=== PATIENT | female | born 1950 | race Caucasian/White ===

== ENCOUNTER 2020-10-10 21:50 | Emergency (ER) | payer MEDICARE, OTHER ==
[~2020-10-10] VITALS: Ht 162.6 cm; Wt 90.1 kg
[2020-10-10] MEDS ORDERED: IV NORMAL SALINE 1,000ML 1,000 ML IV ONE (22:45)
[2020-10-10] MEDS ORDERED: dilTIAZem 25 MG/5 ML VIAL IVP ONE ×2 (22:45→22:56)
[2020-10-10 22:57] LABS: BASO # 0.1 x10^3/uL (0.0-0.2); BASO % 1 % (0-3); EOS # 0.5 x10^3/uL (0.0-0.7); EOS % 4 % (0-3); HEMATOCRIT 44.6 % (36.0-47.0); HEMOGLOBIN 15.1 g/dL (12.0-15.5); LYMPH % 34 % (24-48); MEAN CORPUSCULAR HEMOGLOBIN 31 pg (25-35); MEAN CORPUSCULAR HGB CONC 34 g/dL (31-37); MEAN CORPUSCULAR VOLUME 90 fL (79-100); MONO # 0.9 x10^3/uL (0.0-1.1); MONO % 8 % (0-9); NEUT # 6.3 x10^3uL (1.8-7.7); NEUT % 54 % (31-73); PLATELET COUNT 260 x10^3/uL (140-400); RED BLOOD COUNT 4.94 x10^6/uL (3.50-5.40); RED CELL DISTRIBUTION WIDTH 13.7 % (11.5-14.5); WHITE BLOOD COUNT 11.8 x10^3/uL (4.0-11.0)
[2020-10-10 23:01] LABS: CALCIUM 8.9 mg/dL (8.5-10.1); CREATININE 0.9 mg/dL (0.6-1.0); GFR 61.7; POTASSIUM 3.9 mmol/L (3.5-5.1)
[2020-10-10 23:07] LABS: ALBUMIN 3.8 g/dL (3.4-5.0); ALBUMIN/GLOBULIN RATIO 1.2 (1.0-1.7); TOTAL BILIRUBIN 0.3 mg/dL (0.2-1.0)
[2020-10-10] MEDS ORDERED: DILT180C2 PO (23:30)
--- NOTE | 2020-10-10 23:32 | PHYS DOC ---
Past History Past Medical History: High Cholesterol, Other Additional Past Medical Histor: ILD Past Surgical History: Hysterectomy, Tubal ligation Alcohol Use: Occasionally Adult General Chief Complaint Chief Complaint: RAPID HEART RATE HPI HPI Patient is a [age] year old [sex] who presents with [] Review of Systems Review of Systems Fourteen body systems of review of systems have been reviewed. See HPI for pertinent positives and negative responses, other aguirre all other systems are negative, non-pertinent or non-contributory Current Medications Current Medications Current Medications Medications (Trade) Dose Ordered Sig/Juan Jose Start Time Stop Time Status Last Admin Dose Admin Diltiazem HCl (Cardizem Iv Push) 25 mg STK-MED ONCE 10/10/20 22:56 10/10/20 22:56 DC Sodium Chloride 1,000 ml @ 75 mls/hr 1X ONCE 10/10/20 22:45 10/11/20 12:04 10/10/20 22:58 75 MLS/HR Allergies Allergies Allergies Coded Allergies Type Severity Reaction Last Updated Verified No Known Drug Allergies 10/10/20 No Physical Exam Physical Exam Constitutional: Well developed, well nourished, no acute distress, non-toxic appearance. HENT: Normocephalic, atraumatic, bilateral external ears normal, oropharynx moist, no oral exudates, nose normal. Eyes: PERRLA, EOMI, conjunctiva normal, no discharge. Neck: Normal range of motion, no tenderness, supple, no stridor. Cardiovascular: Heart rate regular, sinus rhythm, no murmurs rubs or gallops Lungs & Thorax: Bilateral breath sounds clear to auscultation Abdomen: Bowel sounds normal, soft, no tenderness, no masses, no pulsatile masses. Nonsurgical abdomen, no peritoneal signs Skin: Warm, dry, no erythema, no rash. Back: No tenderness, no CVA tenderness. Extremities: No tenderness, no cyanosis, no clubbing, ROM intact, no edema. Neurologic: Alert and oriented X 3, grossly normal motor & sensory function, no focal deficits noted. Psychologic: Affect normal, judgement normal, mood normal. Current Patient Data Vital Signs Vital Signs Date Time Temp Pulse Resp B/P (MAP) Pulse Ox O2 Delivery O2 Flow Rate FiO2 10/10/20 22:58 144 122/97 10/10/20 22:21 97.9 18 98 Room Air Lab Results Laboratory Tests Test 10/10/20 22:40 White Blood Count 11.8 x10^3/uL (4.0-11.0) H Red Blood Count 4.94 x10^6/uL (3.50-5.40) Hemoglobin 15.1 g/dL (12.0-15.5) Hematocrit 44.6 % (36.0-47.0) Mean Corpuscular Volume 90 fL (79-100) Mean Corpuscular Hemoglobin 31 pg (25-35) Mean Corpuscular Hemoglobin Concent 34 g/dL (31-37) Red Cell Distribution Width 13.7 % (11.5-14.5) Platelet Count 260 x10^3/uL (140-400) Neutrophils (%) (Auto) 54 % (31-73) Lymphocytes (%) (Auto) 34 % (24-48) Monocytes (%) (Auto) 8 % (0-9) Eosinophils (%) (Auto) 4 % (0-3) H Basophils (%) (Auto) 1 % (0-3) Neutrophils # (Auto) 6.3 x10^3uL (1.8-7.7) Lymphocytes # (Auto) 4.0 x10^3/uL (1.0-4.8) Monocytes # (Auto) 0.9 x10^3/uL (0.0-1.1) Eosinophils # (Auto) 0.5 x10^3/uL (0.0-0.7) Basophils # (Auto) 0.1 x10^3/uL (0.0-0.2) Sodium Level 141 mmol/L (136-145) Potassium Level 3.9 mmol/L (3.5-5.1) Chloride Level 103 mmol/L (98-107) Carbon Dioxide Level 26 mmol/L (21-32) Anion Gap 12 (6-14) Blood Urea Nitrogen 18 mg/dL (7-20) Creatinine 0.9 mg/dL (0.6-1.0) Estimated GFR (Cockcroft-Gault) 61.7 BUN/Creatinine Ratio 20 (6-20) Glucose Level 168 mg/dL (70-99) H Calcium Level 8.9 mg/dL (8.5-10.1) Magnesium Level 1.9 mg/dL (1.8-2.4) Total Bilirubin 0.3 mg/dL (0.2-1.0) Aspartate Amino Transferase (AST) 29 U/L (15-37) Alanine Aminotransferase (ALT) 38 U/L (14-59) Alkaline Phosphatase 72 U/L (46-116) Troponin I Quantitative < 0.017 ng/mL (0-0.055) NM-Hyr-G-Type Natriuretic Peptide 72 pg/mL (0-124) Total Protein 7.0 g/dL (6.4-8.2) Albumin 3.8 g/dL (3.4-5.0) Albumin/Globulin Ratio 1.2 (1.0-1.7) Lipase 104 U/L (73-393) EKG EKG [] Radiology/Procedures Radiology/Procedures [] Heart Score Risk Factors: Risk Factors: DM, Current or recent (<one month) smoker, HTN, HLP, family history of CAD, obesity. Risk Scores: Risk Factors: DM, Current or recent (<one month) smoker, HTN, HLP, family history of CAD, obesity. Course & Med Decision Making Course & Med Decision Making Pertinent Labs and Imaging studies reviewed. (See chart for details) [] Dragon Disclaimer Dragon Disclaimer This electronic medical record was generated, in whole or in part, using a voice recognition dictation system. Departure Departure: Impression: Primary Impression: Atrial fibrillation with RVR Disposition: 01 HOME / SELF CARE / HOMELESS Condition: IMPROVED Referrals: KAEL HATHAWAY MD (PCP) Patient Instructions: Atrial Fibrillation Additional Instructions: You were seen for atrial fibrillation. Your rate was fast and required IV medication to slow this down. This subsequently resolved your atrial fibrillation and fast rate, you were found to be in a normal normal rhythm afterwards. I contacted your primary care physician and we discussed your clinical course, joint decision was made to discharge home with new medication, Cardizem, which is the same medication you were administered through your IV but in pill form. You need to call his office tomorrow for likely follow-up. 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 You should return to the ED if you develop worsening chest pain, shortness of breath, fever, abnormal sweating, leg swelling, or any other new or concerning symptoms. Scripts Diltiazem Hcl (CARDIZEM CD) 180 Mg Cap.er.24h 180 MG PO DAILY for FOR HYPERTENSION, #30 CAP 0 Refills Prov: SIDNEY GARCÍA DO 10/10/20 SIDNEY GARCÍA DO Oct 10, 2020 23:32
--- NOTE | 2020-10-10 23:32 | EKG ---
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
--- NOTE | 2020-10-10 23:43 | RAD ---
Single view chest dated 10/10/2020. No comparison available CLINICAL INDICATION: Tachycardia. Interstitial lung disease. FINDINGS: Single upright portable exam performed. Heart and mediastinal contours are within normal limits. Lung volumes are low with elevation of right hemidiaphragm. There are prominent interstitial markings. No consolidation or pleural effusion. No pneumothorax. IMPRESSION: 1. Diffuse interstitial changes and volume loss, possibly related to interstitial lung disease. Low-g rade edema is also possible. Electronically signed by: Dilshad Edge MD (10/10/2020 11:41 PM) BRANDEN
[2020-10-11 00:05] VITALS: BP 106/77
--- NOTE | 2020-10-11 01:35 | PHYS DOC ---
Past History Past Medical History: High Cholesterol, Other Additional Past Medical Histor: ILD Past Surgical History: Hysterectomy, Tubal ligation Alcohol Use: Occasionally Adult General Chief Complaint Chief Complaint: RAPID HEART RATE HPI HPI Patient is a 69-year-old female who presents due to rapid heart rate. Patient reports this all started approximately 3 weeks ago. She reports since onset she has had 2 episodes where she notices her heart beating out of her chest. Is pending outpatient cardio visit next week. Reports she was at home getting ready for bed when she started feeling palpitations and mild chest tightness when her finger pulse ox that also checked heart rate showed her rate as 170s concerning her and leading to her arrival to our ER. No fever, recent changes in medication or long distance travel, no history of CAD or provocative cardiac workup Review of Systems Review of Systems Constitutional: Denies fever or chills [] Eyes: Denies change in visual acuity, redness, or eye pain [] HENT: Denies nasal congestion or sore throat [] Respiratory: Denies cough or shortness of breath [] Cardiovascular: No additional information not addressed in HPI [] GI: Denies abdominal pain, nausea, vomiting, bloody stools or diarrhea [] : Denies dysuria or hematuria [] Musculoskeletal: Denies back pain or joint pain [] Integument: Denies rash or skin lesions [] Neurologic: Denies headache, focal weakness or sensory changes [] Endocrine: Denies polyuria or polydipsia [] All other systems were reviewed and found to be within normal limits, except as documented in this note. Current Medications Current Medications Current Medications Medications (Trade) Dose Ordered Sig/[facility] Start Time Stop Time Status Last Admin Dose Admin Diltiazem HCl (Cardizem Iv Push) 20 mg 1X ONCE 10/10/20 22:45 10/10/20 22:46 UNV Sodium Chloride 1,000 ml @ 75 mls/hr 1X ONCE 10/10/20 22:45 10/11/20 12:04 UNV Allergies Allergies Allergies Coded Allergies Type Severity Reaction Last Updated Verified No Known Drug Allergies 10/10/20 No Physical Exam Physical Exam Constitutional: Well developed, well nourished, no acute distress, non-toxic appearance. [] HENT: Normocephalic, atraumatic, bilateral external ears normal, oropharynx moist, no oral exudates, nose normal. [] Eyes: PERRLA, EOMI, conjunctiva normal, no discharge. [] Neck: Normal range of motion, no tenderness, supple, no stridor. [] Cardiovascular:Heart rate regular rhythm, no murmur [] Lungs & Thorax: Bilateral breath sounds clear to auscultation [] Abdomen: Bowel sounds normal, soft, no tenderness, no masses, no pulsatile masses. [] Skin: Warm, dry, no erythema, no rash. [] Back: No tenderness, no CVA tenderness. [] Extremities: No tenderness, no cyanosis, no clubbing, ROM intact, no edema. [] Neurologic: Alert and oriented X 3, normal motor function, normal sensory function, no focal deficits noted. [] Psychologic: Affect normal, judgement normal, mood normal. [] Current Patient Data Vital Signs Vital Signs Date Time Temp Pulse Resp B/P (MAP) Pulse Ox O2 Delivery O2 Flow Rate FiO2 10/10/20 22:21 97.9 155 18 144/109 (121) 98 Room Air Lab Results Current Medications Medications (Trade) Dose Ordered Sig/Juan Jose Route PRN Reason Start Time Stop Time Status Last Admin Dose Admin Diltiazem HCl (Cardizem Iv Push) 20 mg 1X ONCE IVP 10/10/20 22:45 10/10/20 22:56 DC 10/10/20 22:58 Sodium Chloride 1,000 ml @ 75 mls/hr 1X ONCE IV 10/10/20 22:45 10/11/20 05:45 DC 10/10/20 22:58 Diltiazem HCl (Cardizem Iv Push) 25 mg STK-MED ONCE IVP 10/10/20 22:56 10/10/20 22:56 DC EKG EKG EKG ordered and interpreted by myself 2215 hrs. as atrial fibrillation with rapid ventricular rate of 122 bpm, unremarkable intervals, left axis deviation, no STEMI Radiology/Procedures Radiology/Procedures Single view chest dated 10/10/2020. No comparison available CLINICAL INDICATION: Tachycardia. Interstitial lung disease. FINDINGS: Single upright portable exam performed. Heart and mediastinal contours are within normal limits. Lung volumes are low with elevation of right hemidiaphragm. There are prominent interstitial markings. No consolidation or pleural effusion. No pneumothorax. IMPRESSION: 1. Diffuse interstitial changes and volume loss, possibly related to interstitial lung disease. Low-grade edema is also possible. Electronically signed by: Dilshad Edge MD (10/10/2020 11:41 PM) [facility] [place] C/O Chest Pain: Yes HEART Score for Chest Pain: HEART Score for Chest Pain Response (Comments) Value History Moderately Suspicious 1 ECG Normal 0 Age > 65 2 Risk Factors >3 Risk Factors or Hx CAD 2 Troponin < Normal Limit 0 Total 5 Risk Factors: Risk Factors: DM, Current or recent (<one month) smoker, HTN, HLP, family history of CAD, obesity. Risk Scores: Risk Factors: DM, Current or recent (<one month) smoker, HTN, HLP, family history of CAD, obesity. Course & Med Decision Making Course & Med Decision Making Afib with RVR in patient with pAFIB, PE unremarkable ER workup obtained and grossly unremarkable Weight-based bolus of Cardizem administered with complete conversion of patient's arrythmia I discussed concerning presentation and recommended admission but patient declined. I contacted PCP and reviewed case, patient has close cardiac follow-up for outpatient provocative testing. She takes 324mg ASA daily. Joint-decision to started PO Cardizem and be seen in clinic tomorrow I updated patient on proposed plan of care and she was amenable given that she remained in NSR after medical conversion. Strict return precautions were discussed. I disclosed this might reoccur and other abnormalities could ensue given that we were discharging home but she understood this Dragon Disclaimer Dragon Disclaimer This electronic medical record was generated, in whole or in part, using a voice recognition dictation system. Departure Departure: Impression: Primary Impression: Atrial fibrillation with RVR Disposition: HOME / SELF CARE / HOMELESS Condition: IMPROVED Referrals: KAEL HATHAWAY MD (PCP) Scripts Diltiazem Hcl (CARDIZEM CD) 180 Mg Cap.er.24h 180 MG PO DAILY for FOR HYPERTENSION, #30 CAP 0 Refills Prov: SIDNEY GARCÍA DO 10/10/20 SIDNEY GARCÍA DO October 11, 2020 01:35
--- NOTE | 2020-10-11 04:32 | EKG ---
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
== END 2020-10-11 00:05 | disposition home or self-care (01) ==
LOC: ER 21:50
DX: I48.20 Chronic atrial fibrillation, unspecified (principal); E78.00 Pure hypercholesterolemia, unspecified
CPT/HCPCS: 36415; 71045; 80053; 83690; 83735; 83880; 84443; 84484; 85025; 85610; 85730; 93005; 96361; 96374; 99285; J3490; J7030

== ENCOUNTER 2021-09-08 11:25 | Emergency (ER) | payer MEDICARE, OTHER ==
[~2021-09-08] VITALS: Ht 165.1 cm; Wt 77.7 kg
[~2021-09-08 11:25] MED LIST: DILT180C2 PO
--- NOTE | 2021-09-08 11:26 | PHYS DOC ---
Past History Past Medical History: A-Fib, High Cholesterol, Hypertension, Other Additional Past Medical Histor: ILD Past Surgical History: Hysterectomy, Tubal ligation Smoking: Non-smoker Alcohol Use: None Drug Use: None General Adult HPI: HPI: Patient is a 70-year-old female who presents here from her primary care doctor's office for "EKG changes." The patient reports that 4 days ago, she experienced what she describes as "chest pressure" which lasted about 3 hours. She denies any other associated symptoms, denies dyspnea, pleuritic pain, cough, dizziness, diaphoresis, abdominal pain, nausea, vomiting. She denies syncope or near syncope. She has had no recurrence of chest pressure symptoms since then. She reports that she "felt like something was moving in my hand" at that time as well. She points to her right hand. She denies any radiation of pain or arm pain. Denies numbness or tingling or motor weakness. She has no symptoms of any kind at present. She does admit that she has been experiencing significant anxiety symptoms recently, especially after her a few months ago. She reports a decreased appetite, decreased oral intake and increased frequency of diarrhea secondary to medication she is prescribed for lung disease. Patient reports that she was told to come here for laboratory exams. She reportedly had a chest x-ray at her primary care doctor's office, though I am unable to see this study. She denies lower extremity pain or swelling, denies recent travel, surgery, hospitalization. She does have a history of atrial fibrillation, reports compliance with all medications and compliance with anticoagulation. She takes Eliquis. She sees a crushing machine operator at [facility]. She sees them every 6 months. She saw them about 2-3 months ago. Review of Systems: Review of Systems: Constitutional: Denies fever or chills Eyes: Denies change in visual acuity HENT: Denies nasal congestion or sore throat Respiratory: Denies cough or shortness of breath Cardiovascular: One episode of chest pressure 4 days ago, none since then. Denies palpitations, syncope or edema. GI: Denies abdominal pain, nausea, vomiting. Chronic and unchanged diarrhea symptoms. : Denies urinary symptoms. Musculoskeletal: Denies back pain or joint pain Integument: Denies rash Neurologic: Denies headache, focal weakness or sensory changes Endocrine: Denies polyuria or polydipsia Lymphatic: Denies swollen glands Psychiatric: Depression and anxiety symptoms. Allergies: Allergies: Allergies Coded Allergies Type Severity Reaction Last Updated Verified No Known Drug Allergies 10/10/20 No Physical Exam: PE: Constitutional: Well developed, well nourished, no acute distress, non-toxic appearance. [] HENT: Normocephalic, atraumatic Eyes: Sclera are anicteric Neck: Normal range of motion, no tenderness, supple, no stridor. Trachea is midline. Cardiovascular:Heart rate regular rhythm, +2 radial and +2 posterior tibial pulses bilaterally Lungs & Thorax: Bilateral breath sounds clear to auscultation, no rales, rhonchi or wheezes Abdomen: Abdomen is soft, nondistended, nontender to palpation. No palpable mass organomegaly Skin: Warm, dry, no erythema, no rash. [] Back: No tenderness, no CVA tenderness. Full ROM. Extremities: No tenderness, no cyanosis, no clubbing, ROM intact, no edema. No calf tenderness Neurologic: Alert and oriented X 3, normal motor function, normal sensory function, no focal deficits noted. Ambulatory with a steady gait. Psychologic: She is anxious but cooperative and pleasant EKG: EKG: EKG is interpreted at 1134 Rhythm is sinus Rate is 78 bpm [place] is left No STEMI No acute changes when compared to EKG from 10/10/2020 Radiology/Procedures: Radiology/Procedures: IMAGING REPORT Signed PATIENT: DAREN PARSONS ACCOUNT: [id number] : 1950 LOCATION: ER AGE: 70 SEX: F EXAM STATUS: REG ER ORD. PHYSICIAN: JAYLENE LAMBERT DO REASON: chest pressure PROCEDURE: PORTABLE CHEST 1V XR CHEST 1V INDICATION: chest pressure COMPARISON STUDY: 10/10/2020. FINDINGS: Lungs: Low lung volume. Bilateral peripheral interstitial opacities. Pleura: No pleural effusion or pneumothorax. Heart and Mediastinum: Cardiolite gland. The great vessels of the thorax are normal. IMPRESSION: Bilateral peripheral interstitial opacities, which may represent infection or edema in the acute setting or could represent interstitial lung disease in the chronic setting. Electronically signed by: Genevieve Long MD (09/08/2021 12:42 PM) [id number] DICTATED AND SIGNED BY: GENEVIEVE LONG MD DATE: 09/08/21 0300 CC: KAEL HATHAWAY MD; JAYLENE LAMBERT DO ~ Heart Score: C/O Chest Pain: Yes HEART Score for Chest Pain: HEART Score for Chest Pain Response (Comments) Value History Slighlty/Non-Suspicious 0 ECG Nonspecific Repolarizatio 1 Age > 65 2 Risk Factors 1 or 2 Risk Factors 1 Troponin >3 x Normal Limit 2 Total 6 Risk Factors: Risk Factors: DM, Current or recent (<one month) smoker, HTN, HLP, family history of CAD, obesity. Risk Scores: Score 0 - 3: 2.5% MACE over next 6 weeks - Discharge Home Score 4 - 6: 20.3% MACE over next 6 weeks - Admit for Clinical Observation Score 7 - 10: 72.7% MACE over next 6 weeks - Early Invasive Strategies Course & Med Decision Making: Course & Med Decision Making Pertinent Labs and Imaging studies reviewed. (See chart for details) The patient continued to deny any chest pain or pressure. Denies dyspnea. Blood pressure and vital signs are viable and very stable. She appears to be resting very comfortably throughout her ED course. Initial troponin returned as greater than 4000. The patient is given oral aspirin. I have discussed the findings, differential diagnosis and plan of care with her. I recommended hospitalization. She wishes to go to [facility], where her crushing machine operator is located. I contacted , the patient was accepted for admission by Dr. Rasheed. The patient personally got a hold of her crushing machine operator nurse, who spoke with her and reported that the crushing machine operator would be rounding this week and will see her in the hospital while she is there. Dr. Rasheed requested heparin drip be started, this was done. The patient is comfortable with the plan for transfer. She is transferred in stable condition. Dragon Disclaimer: Dragon Disclaimer: This electronic medical record was generated, in whole or in part, using a voice recognition dictation system. Departure Departure: Impression: Primary Impression: Acute coronary syndrome Additional Impression: History of atrial fibrillation Disposition: [facility] Condition: STABLE Referrals: KAEL HATHAWAY MD (PCP) JAYLENE LAMBERT DO Sep 08, 2021 11:26
[2021-09-08 12:13] LABS: BASO # 0.1 x10^3/uL (0.0-0.2); BASO % 1 % (0-3); EOS # 0.1 x10^3/uL (0.0-0.7); EOS % 1 % (0-3); HEMATOCRIT 40.2 % (36.0-47.0); HEMOGLOBIN 13.6 g/dL (12.0-15.5); LYMPH # 2.9 x10^3/uL (1.0-4.8); LYMPH % 25 % (24-48); MEAN CORPUSCULAR HEMOGLOBIN 31 pg (25-35); MEAN CORPUSCULAR HGB CONC 34 g/dL (31-37); MEAN CORPUSCULAR VOLUME 90 fL (79-100); MONO # 0.9 x10^3/uL (0.0-1.1); MONO % 7 % (0-9); NEUT # 7.7 x10^3uL (1.8-7.7); NEUT % 66 % (31-73); PLATELET COUNT 258 x10^3/uL (140-400); RED BLOOD COUNT 4.47 x10^6/uL (3.50-5.40); RED CELL DISTRIBUTION WIDTH 13.7 % (11.5-14.5); WHITE BLOOD COUNT 11.7 x10^3/uL (4.0-11.0)
[2021-09-08 12:23] LABS: CALCIUM 8.6 mg/dL (8.5-10.1); CREATININE 0.8 mg/dL (0.6-1.0); GFR 70.5; POTASSIUM 4.2 mmol/L (3.5-5.1)
[2021-09-08 12:30] LABS: ALBUMIN 3.4 g/dL (3.4-5.0); ALBUMIN/GLOBULIN RATIO 1.2 (1.0-1.7); MAGNESIUM 2.2 mg/dL (1.8-2.4); TOTAL BILIRUBIN 0.7 mg/dL (0.2-1.0); TOTAL PROTEIN 6.3 g/dL (6.4-8.2)
--- NOTE | 2021-09-08 12:45 | RAD ---
XR CHEST 1V INDICATION: chest pressure COMPARISON STUDY: 10/10/2020. FINDINGS: Lungs: Low lung volume. Bilateral peripheral interstitial opacities. Pleura: No pleural effusion or pneumothorax. Heart and Mediastinum: Cardiolite gland. The great vessels of the thorax are normal. IMPRESSION: Bilateral peripheral interstitial opacities, which may represent infection or edema in the acute sett ing or could represent interstitial lung disease in the chronic setting. Electronically signed by: Wayne Long MD (09/08/2021 12:42 PM) [id number]
[2021-09-08] MEDS ORDERED: ASPIRIN CHEWABLE 81 MG TABLET. PO ONE (13:00)
[2021-09-08 13:14] LABS: BACTERIA,URINE 0 /HPF (0-FEW); CLARITY,URINE CLEAR; COLOR,URINE YELLOW; GLUCOSE,URINE NEG (NEG); NITRITE,URINE NEG (NEG); SQUAMOUS EPITHELIAL CELL,UR MANY /LPF
[2021-09-08 13:25] VITALS: BP 114/68
[2021-09-08] MEDS ORDERED: HEPARIN for IV BOLUS 10,000 UNIT/10 ML VIAL. IV PRN (13:30)
[2021-09-08] MEDS ORDERED: HEPARIN for IV BOLUS 10,000 UNIT/10 ML VIAL. IV ONE (13:30)
[2021-09-08] MEDS ORDERED: HEPARIN 25,000UTS/250ML PREMIX 250 ML IV PRN (13:30)
[2021-09-08 14:18] LABS: HEMATOCRIT 40.6 % (36.0-47.0); HEMOGLOBIN 13.7 g/dL (12.0-15.5); RED BLOOD COUNT 4.48 x10^6/uL (3.50-5.40); RED CELL DISTRIBUTION WIDTH 13.7 % (11.5-14.5); WHITE BLOOD COUNT 12.6 x10^3/uL (4.0-11.0)
--- NOTE | 2021-09-08 20:06 | EKG ---
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
== END 2021-09-08 14:19 | disposition short-term general hospital (02) ==
LOC: ER 11:25
DX: I24.9 Acute ischemic heart disease, unspecified (principal); R19.7 Diarrhea, unspecified; I48.91 Unspecified atrial fibrillation; E78.00 Pure hypercholesterolemia, unspecified; I10 Essential (primary) hypertension
CPT/HCPCS: 36415; 71045; 80053; 81001; 83690; 83735; 84484; 85025; 85027; 85610; 93005; 96365; 96376; 99285; J1644